=== PATIENT | male | born 1970 | race American Indian/Alaskan Native ===

== ENCOUNTER 2018-04-13 12:49 | Emergency (ER) | payer OTHER ==
[2018-04-13 13:09] VITALS: BP 120/90
[2018-04-13] MEDS ORDERED: PEPCID IV ONE (13:13)
[2018-04-13] MEDS ORDERED: BENADRYL PO ONE (13:13)
--- NOTE | 2018-04-13 14:44 | Emergency Department Report ---
ED Allergic Reaction HPI - General Chief complaint: Allergic Reaction Stated complaint: STUNG BY WASP Time Seen by Provider: 04/13/18 13:53 Source: patient Mode of arrival: Ambulatory Limitations: No Limitations - History of Present Illness Initial Comments: This is a 47-year-old -[place] male presents with facial swelling and itching from a wasp sting today around 12:00. Patient reports he was at work working on a truck and felt something sting his right upper arm. Shortly afterwards he started having facial swelling and felt his throat was closing. He took 2 Benadryl tablets while at work and came directly here for further evaluation. He denies difficulty swallowing, drooling, hives, difficulty breathing, hoarseness, nausea and vomiting, and visual changes. MD Complaint: allergic reaction, facial swelling -: This afternoon (around 12:00) Exposure: insect bite (wasp) Symptoms: itching, facial swelling. denies: rash, lip swelling, difficulty swallowing, difficulty breathing, orolingual swelling, hoarseness, syncopy, dizziness, nausea, vomiting, abdominal pain Severity: mild Treatment Prior to Arrival: benadryl Previous Allergy History: none - Related Data Previous Rx's Medication Instructions Recorded Last Taken Type Famotidine [Pepcid] 20 mg PO DAILY #20 tablet 04/13/18 Unknown Rx Prednisone [predniSONE 10 mg 10 mg PO .TAPER #1 tab.ds.pk 04/13/18 Unknown Rx (6-Day Pack, 21 Tabs)] hydrOXYzine PAMOATE [Vistaril] 25 mg PO Q6HR PRN #20 capsule 04/13/18 Unknown Rx Allergies Allergy/AdvReac Type Severity Reaction Status Date / Time venom-wasp Allergy Swelling Verified 04/13/18 13:05 ED Review of Systems ROS: Stated complaint: STUNG BY WASP Other details as noted in HPI Constitutional: denies: chills, fever ENT: other (sensation of throat closing). denies: ear pain, throat pain, dental pain, hearing loss, epistaxis, congestion Respiratory: denies: cough, shortness of breath, wheezing Cardiovascular: denies: chest pain, palpitations Gastrointestinal: denies: abdominal pain, nausea, vomiting, diarrhea Skin: pruritus. denies: rash, lesions Neurological: denies: headache, weakness, numbness, paresthesias Psychiatric: denies: anxiety, depression ED Past Medical Hx - Past Medical History Previous Medical History?: No - Surgical History Past Surgical History?: No - Social History Smoking Status: Current Every Day Smoker Substance Use Type: Alcohol - Medications Home Medications: Home Medications Medication Instructions Recorded Confirmed Last Taken Type Famotidine [Pepcid] 20 mg PO DAILY #20 tablet 04/13/18 Unknown Rx Prednisone [predniSONE 10 mg 10 mg PO .TAPER #1 tab.ds.pk 04/13/18 Unknown Rx (6-Day Pack, 21 Tabs)] hydrOXYzine PAMOATE [Vistaril] 25 mg PO Q6HR PRN #20 capsule 04/13/18 Unknown Rx ED Physical Exam - General Limitations: No Limitations General appearance: alert, in no apparent distress - Eye Eye exam: Present: PERRL, EOMI, periorbital swelling. Absent: scleral icterus, conjunctival injection, nystagmus Pupils: Present: normal accommodation. Absent: irregular, unequal, miosis, mydriatic - ENT ENT exam: Present: normal orophraynx, mucous membranes moist - Neck Neck exam: Present: normal inspection, full ROM. Absent: lymphadenopathy - Respiratory Respiratory exam: Present: normal lung sounds bilaterally. Absent: respiratory distress - Cardiovascular Cardiovascular Exam: Present: regular rate, normal rhythm, normal heart sounds. Absent: systolic murmur, diastolic murmur, rubs, gallop - GI/Abdominal GI/Abdominal exam: Present: soft, normal bowel sounds. Absent: organomegaly, mass - Neurological Exam Neurological exam: Present: alert, oriented X3 - Psychiatric Psychiatric exam: Present: normal affect, normal mood - Skin Skin exam: Present: warm, dry, intact, normal color. Absent: rash ED Course Vital Signs 04/13/18 13:05 Temperature 98.9 F Pulse Rate 91 H Respiratory 18 Rate Blood Pressure 120/90 O2 Sat by Pulse 97 Oximetry ED Medical Decision Making - Medical Decision Making This is a 47 y.o. male with pruritus and facial swelling from insect sting today. Patient examined by me and stable. No distress noted. Vitals stable. Given SOLU-MEDROL 125 mg IV, pepcid 20 mg IV, and benadryl 50 mg po once in ER. Start prednisone taper, Vistaril, and Pepcid for allergic reaction. Discussed plan with patient and he agrees with plan. Discharged home. Follow up with PCP in 24-72 hours. Critical care attestation.: If time is entered above; I have spent that time in minutes in the direct care of this critically ill patient, excluding procedure time. ED Disposition Clinical Impression: Insect bite Qualifiers: Encounter type: initial encounter Qualified Code(s): W57.XXXA - Bitten or stung by nonvenomous insect and other nonvenomous arthropods, initial encounter Allergic reaction to insect sting Qualifiers: Encounter type: initial encounter Injury intent: accidental or unintentional Qualified Code(s): T63.481A - Toxic effect of venom of other arthropod, accidental (unintentional), initial encounter Disposition: DC- TO HOME OR SELFCARE Is pt being admited?: No Does the pt Need Aspirin: No Condition: Stable Instructions: Allergies (ED), Insect Bite or Sting (ED) Additional Instructions: Complete full course of steroids as prescribed to prevent symptoms Take Vistaril and Pepcid for symptom relief. Follow-up with primary care provider in 2-3 days. Prescriptions: Famotidine [Pepcid] 20 mg PO DAILY #20 tablet hydrOXYzine PAMOATE [Vistaril] 25 mg PO Q6HR PRN #20 capsule PRN Reason: Itching Prednisone [predniSONE 10 mg (6-Day Pack, 21 Tabs)] 10 mg PO .TAPER #1 tab.ds.pk Referrals: [facility] [Outside] - [facility] - [facility] [facility] [Outside] - 3-5 Days Forms: Work/School Release Form(ED) Time of Disposition: 14:52 Print Language: URDU
== END 2018-04-13 15:01 | disposition home or self-care (01) ==
LOC: ED 12:49
DX: T63.481A Toxic effect of venom of other arthropod, accidental (unintentional), initial encounter (principal); F17.200 Nicotine dependence, unspecified, uncomplicated; Z91.038 Other insect allergy status; Y93.89 Activity, other specified; Y99.8 Other external cause status; Y92.89 Other specified places as the place of occurrence of the external cause
CPT/HCPCS: 96374; 96375; 99283; J2930

== ENCOUNTER 2022-07-04 14:33 | Emergency (ER) | payer SELFPAY ==
[2022-07-04 15:27] VITALS: BP 126/69
== END 2022-07-04 18:00 | disposition left against medical advice (07) ==
LOC: ED 14:33
DX: M54.9 Dorsalgia, unspecified (principal); Z53.21 Procedure and treatment not carried out due to patient leaving prior to being seen by health care provider; V89.2XXA Person injured in unspecified motor-vehicle accident, traffic, initial encounter; Y93.89 Activity, other specified; Y92.89 Other specified places as the place of occurrence of the external cause; Y99.8 Other external cause status